=== PATIENT | male | born 1990 | race Caucasian/White ===

== ENCOUNTER 2018-07-23 18:51 | Emergency (ER) | payer SELFPAY ==
[~2018-07-23] VITALS: Ht 180.3 cm; Wt 98.2 kg
[2018-07-23 18:59] VITALS: BP 106/71
--- NOTE | 2018-07-23 23:35 | NUR ---
No response from lobby after 3 attepmts to room, call placed to number on file, auto-generated. message recieved reporting number is restricted. Dr richards informed.
== END 2018-07-24 | disposition left against medical advice (07) ==
LOC: ER 07-24 03:34
DX: L02.31 Cutaneous abscess of buttock (principal); Z53.21 Procedure and treatment not carried out due to patient leaving prior to being seen by health care provider